=== PATIENT | female | born 1970 | race Caucasian/White ===

== ENCOUNTER → 2016-12-22 | Outpatient (CLI) | payer MEDICAID | END | disposition home or self-care (01) | LOC: MA 13:30 | PROC: BH01ZZZ Plain Radiography of Left Breast (ICD-10-PCS; principal; 2016-12-22) | DX: C50.919 Malignant neoplasm of unspecified site of unspecified female breast (principal) | CPT/HCPCS: G0206 ==

== ENCOUNTER → 2017-01-01 | Outpatient (CLI) | payer MEDICAID | END | disposition home or self-care (01) | LOC: MA 13:00 | DX: C50.919 Malignant neoplasm of unspecified site of unspecified female breast (principal) | CPT/HCPCS: G0206 ==

== ENCOUNTER → 2017-07-08 | Outpatient (CLI) | payer MEDICAID | END | disposition home or self-care (01) | LOC: MA 14:30 | PROC: BH01ZZZ Plain Radiography of Left Breast (ICD-10-PCS; principal; 2017-07-08) | DX: N63.0 Unspecified lump in unspecified breast (principal) | CPT/HCPCS: 77065 ==

== ENCOUNTER → 2018-06-30 | Outpatient (CLI) | payer MEDICAID | END | disposition home or self-care (01) | LOC: MA 06-25 15:00 | PROC: BH01ZZZ Plain Radiography of Left Breast (ICD-10-PCS; principal; 2018-06-30) | DX: C50.811 Malignant neoplasm of overlapping sites of right female breast (principal); Z17.0 Estrogen receptor positive status [ER+] | CPT/HCPCS: 77065 ==